=== PATIENT | female | born 1965 | race Caucasian/White ===

== ENCOUNTER 2018-01-28 09:33 | Emergency (ER) | payer MEDICAID ==
[~2018-01-28] VITALS: Ht 157.5 cm; Wt 66.7 kg
[2018-01-28 09:48] VITALS: Ht 157.5 cm; Wt 66.7 kg
[2018-01-28 10:44] LABS: BASOPHIL % 0.3 % (0-2); PLATELET COUNT 243 x10^3mcL (130-400); RED CELL DISTRIBUTION WIDTH 13.8 % (11.5-14.5)
[2018-01-28 10:52] LABS: CARBON DIOXIDE 25.7 mmol/L (21-32); CHLORIDE SERUM 109 mmol/L (98-107); CREATININE SERUM 0.9 mg/dL (0.6-1.0); GFR1 > 60 mL/min; GLUCOSE SERUM 92 mg/dL (74-106); POTASSIUM SERUM 3.6 mmol/L (3.5-5.1); SODIUM SERUM 147 mmol/L (136-145)
[2018-01-28 10:59] LABS: ALBUMIN 3.7 g/dL (3.4-5.0); ALKALINE PHOSPHATASE 103 U/L (46-116); ALT/SGPT 31 U/L (14-59); AST/SGOT 23 U/L (15-37); BILIRUBIN TOTAL 0.77 mg/dL (0.20-1.00); LIPASE 155 IU/L (73-393); TOTAL PROTEIN, SERUM 7.8 g/dL (6.4-8.2)
[2018-01-28 11:24] VITALS: BP 115/70
== END 2018-01-28 11:24 | disposition home or self-care (01) ==
LOC: ED 09:33
PROVIDERS: Emergency Medicine
DX: K80.70 Calculus of gallbladder and bile duct without cholecystitis without obstruction (principal)
CPT/HCPCS: J1885; J2405; J7030; Q0092

== ENCOUNTER 2018-10-06 15:33 | Inpatient (IN) | payer MEDICAID ==
[~2018-10-06] VITALS: Ht 162.6 cm; Wt 66.8 kg
[2018-10-06 15:37] VITALS: Ht 162.6 cm; Wt 66.8 kg
[2018-10-06 16:59] LABS: PLATELET COUNT 192 x10^3mcL (130-400); RED CELL DISTRIBUTION WIDTH 13.4 % (11.5-14.5)
[2018-10-06 17:03] LABS: CARBON DIOXIDE 22.3 mmol/L (21-32); CHLORIDE SERUM 98 mmol/L (98-107); GFR1 > 60 mL/min; GLUCOSE SERUM 138 mg/dL (74-106); POTASSIUM SERUM 3.1 mmol/L (3.5-5.1); SODIUM SERUM 134 mmol/L (136-145)
[2018-10-06 17:06] LABS: UA SPECIFIC GRAVITY 1.025 (1.005-1.035); microscopic required? YES; urine erythrocyte 3+ (NEGATIVE)
[2018-10-06 17:07] LABS: BASOPHIL % 0 % (0-2)
[2018-10-06 17:14] LABS: ALKALINE PHOSPHATASE 106 U/L (46-116); ALT/SGPT 72 U/L (14-59); AST/SGOT 31 U/L (15-37); BILIRUBIN TOTAL 0.5 mg/dL (0.20-1.00); TOTAL PROTEIN, SERUM 6.9 g/dL (6.4-8.2)
[2018-10-06 17:26] LABS: ALBUMIN 2.5 g/dL (3.4-5.0)
[2018-10-06 17:27] LABS: C REACTIVE PROTEIN 16.6 mg/dL (<=0.9)
[2018-10-06 17:37] LABS: CK-MB < 0.5 ng/mL (0-3.6); CREATINE KINASE 24 U/L (26-192)
[2018-10-06 17:40] LABS: FREE T4 1.15 ng/dL (0.76-1.46); T4(THYROXINE) 5.9 ug/dL (4.7-13.3)
[2018-10-06 17:43] LABS: T3 TOTAL 0.58 ng/mL
[2018-10-06 17:51] LABS: ERYTHROCYTE SED RATE 52 mm/hr (0-30)
[2018-10-06] MEDS ORDERED: LANSOPRAZOLE30 M2 PO (19:23)
[2018-10-06] MEDS ORDERED: ASPIR 8181 MG (19:23)
[2018-10-06 19:51] VITALS: BP 97/67
[2018-10-06 19:57] LABS: MAGNESIUM 1.7 mg/dL (1.8-2.4); PHOSPHOROUS 1.8 mg/dL (2.5-4.9)
[2018-10-07 04:37] VITALS: BP 90/51
[2018-10-07 06:47] LABS: MAGNESIUM 1.9 mg/dL (1.8-2.4); PHOSPHOROUS 1.7 mg/dL (2.5-4.9)
[2018-10-07 06:56] LABS: CALCIUM 7.9 mg/dL (8.5-10.1); CARBON DIOXIDE 21.1 mmol/L (21-32); CHLORIDE SERUM 108 mmol/L (98-107); CREATININE SERUM 0.7 mg/dL (0.6-1.0); GFR1 > 60 mL/min; GLUCOSE SERUM 97 mg/dL (74-106); POTASSIUM SERUM 4.9 mmol/L (3.5-5.1); SODIUM SERUM 138 mmol/L (136-145)
[2018-10-07 07:03] LABS: BASOPHIL % 0.1 % (0-2); PLATELET COUNT 141 x10^3mcL (130-400); RED CELL DISTRIBUTION WIDTH 13.8 % (11.5-14.5)
[2018-10-07 09:02] VITALS: BP 98/58
[2018-10-07 12:11] VITALS: BP 101/61
[2018-10-07 16:50] VITALS: BP 111/71
[2018-10-07 21:00] VITALS: BP 104/68
[2018-10-08 05:43] VITALS: BP 98/54
[2018-10-08 06:32] LABS: PLATELET COUNT 167 x10^3mcL (130-400); RED CELL DISTRIBUTION WIDTH 13.6 % (11.5-14.5)
[2018-10-08 06:59] LABS: CALCIUM 8.4 mg/dL (8.5-10.1); CARBON DIOXIDE 25.7 mmol/L (21-32); CHLORIDE SERUM 105 mmol/L (98-107); CREATININE SERUM 0.7 mg/dL (0.6-1.0); GFR1 > 60 mL/min; GLUCOSE SERUM 142 mg/dL (74-106); PHOSPHOROUS 3.2 mg/dL (2.5-4.9); POTASSIUM SERUM 3.5 mmol/L (3.5-5.1); SODIUM SERUM 140 mmol/L (136-145)
[2018-10-08 09:23] VITALS: BP 143/65
[2018-10-08 14:21] LABS: BAND NEUTROPHIL 3 % (0-10); BASOPHIL 0 % (0-2); MONOCYTE 2 % (0-7); SEGMENTED NEUTROPHILS 89 % (37-75); rbc morphology (normal/abnorm) NORMAL (NORMAL)
[2018-10-08 14:22] LABS: PLATELET MORPHOLOGY PLATELETS NORMAL
[2018-10-08 17:09] VITALS: BP 90/52
[2018-10-08 20:51] VITALS: BP 97/60
[2018-10-09 05:25] VITALS: BP 112/70
[2018-10-09 06:37] LABS: BASOPHIL % 0.1 % (0-2); PLATELET COUNT 187 x10^3mcL (130-400); RED CELL DISTRIBUTION WIDTH 14.1 % (11.5-14.5)
[2018-10-09 06:45] LABS: CALCIUM 8.1 mg/dL (8.5-10.1); CHLORIDE SERUM 107 mmol/L (98-107); CREATININE SERUM 0.8 mg/dL (0.6-1.0); GFR1 > 60 mL/min; GLUCOSE SERUM 94 mg/dL (74-106); POTASSIUM SERUM 3.3 mmol/L (3.5-5.1); SODIUM SERUM 142 mmol/L (136-145)
[2018-10-09 08:35] VITALS: BP 99/53
[2018-10-09 17:22] VITALS: BP 95/62
[2018-10-09 20:54] VITALS: BP 99/59
[2018-10-10 06:05] VITALS: BP 102/66
[2018-10-10 06:36] LABS: CALCIUM 8.3 mg/dL (8.5-10.1); CARBON DIOXIDE 25.6 mmol/L (21-32); CHLORIDE SERUM 106 mmol/L (98-107); CREATININE SERUM 0.7 mg/dL (0.6-1.0); GFR1 > 60 mL/min; GLUCOSE SERUM 98 mg/dL (74-106); POTASSIUM SERUM 3.9 mmol/L (3.5-5.1); SODIUM SERUM 142 mmol/L (136-145)
[2018-10-10 08:20] VITALS: BP 103/61
[2018-10-10 08:32] LABS: BASOPHIL % 0.1 % (0-2); PLATELET COUNT 214 x10^3mcL (130-400); RED CELL DISTRIBUTION WIDTH 14.5 % (11.5-14.5)
[2018-10-10] MEDS ORDERED: CLEOCIN HCL300 MG PO (11:21)
[2018-10-10] MEDS ORDERED: BD LACTINEX1.4 MG PO (11:24)
[2018-10-10 12:15] VITALS: BP 102/61
[2018-10-10 12:18] VITALS: BP 102/61
== END 2018-10-10 15:00 | disposition home or self-care (01) | DRG 720 ==
LOC: ED 15:33 → MU 18:52 → DU 18:52 → EDBEDREQSVC 18:58 → DU 19:50 → MU 10-07 15:52
PROVIDERS: Family Medicine; Specialist; ADMIT Internal Medicine
DX: A41.9 Sepsis, unspecified organism (principal); N17.0 Acute kidney failure with tubular necrosis; E43 Unspecified severe protein-calorie malnutrition; E87.1 Hypo-osmolality and hyponatremia; E83.42 Hypomagnesemia; E83.39 Other disorders of phosphorus metabolism; L03.116 Cellulitis of left lower limb; E87.6 Hypokalemia; K80.20 Calculus of gallbladder without cholecystitis without obstruction; K21.9 Gastro-esophageal reflux disease without esophagitis; R73.03 Prediabetes; R74.0 Nonspecific elevation of levels of transaminase and lactic acid dehydrogenase [LDH]; Z68.26 Body mass index [BMI] 26.0-26.9, adult; Z79.82 Long term (current) use of aspirin
CPT/HCPCS: 36600; 84439; C9113; J0696; J1030; J1644; J1720; J1885; J2405; J3010; J3370; J3490; J7030; J7050; Q0092; Q0163

== ENCOUNTER 2019-01-11 20:57 | Emergency (ER) | payer MEDICAID ==
[~2019-01-11] VITALS: Ht 152.4 cm; Wt 69.9 kg
[~2019-01-11 20:57] MED LIST: ASPIR 8181 MG; BD LACTINEX1.4 MG PO; CLEOCIN HCL300 MG PO; LANSOPRAZOLE30 M2 PO
[2019-01-11 21:22] VITALS: Ht 152.4 cm; Wt 69.9 kg
[2019-01-11 21:46] LABS: microscopic required? NO
[2019-01-11 21:56] LABS: urine erythrocyte NEGATIVE (NEGATIVE)
[2019-01-11 21:57] LABS: BASOPHIL % 0.6 % (0-2); PLATELET COUNT 241 x10^3mcL (130-400)
[2019-01-11 22:05] LABS: CALCIUM 9.4 mg/dL (8.5-10.1); CARBON DIOXIDE 27.5 mmol/L (21-32); CHLORIDE SERUM 106 mmol/L (98-107); CREATININE SERUM 0.9 mg/dL (0.6-1.0); GFR1 > 60 mL/min; GLUCOSE SERUM 95 mg/dL (74-106); POTASSIUM SERUM 3.9 mmol/L (3.5-5.1); SODIUM SERUM 143 mmol/L (136-145)
[2019-01-11 22:10] LABS: ALBUMIN 3.5 g/dL (3.4-5.0); ALKALINE PHOSPHATASE 106 U/L (46-116); ALT/SGPT 38 U/L (14-59); AST/SGOT 20 U/L (15-37); BILIRUBIN TOTAL 0.2 mg/dL (0.20-1.00); LIPASE 175 IU/L (73-393); TOTAL PROTEIN, SERUM 7.3 g/dL (6.4-8.2)
[2019-01-11 22:45] VITALS: BP 121/71
== END 2019-01-11 22:45 | disposition home or self-care (01) ==
LOC: ED 20:57
PROVIDERS: Emergency Medicine
DX: K80.20 Calculus of gallbladder without cholecystitis without obstruction (principal); Z98.890 Other specified postprocedural states
CPT/HCPCS: 36415; J1885; J2405; J7030

== ENCOUNTER 2019-06-05 13:08 | Emergency (ER) | payer MEDICAID ==
[~2019-06-05] VITALS: Ht 162.6 cm; Wt 73.5 kg
[2019-06-05 14:02] VITALS: Ht 162.6 cm; Wt 73.5 kg
[2019-06-05 16:26] LABS: BASOPHIL % 0.7 % (0-2); PLATELET COUNT 257 x10^3mcL (130-400); RED CELL DISTRIBUTION WIDTH 14.2 % (11.5-14.5)
[2019-06-05 16:29] LABS: UA SPECIFIC GRAVITY <=1.005 (1.005-1.035); microscopic required? YES; urine erythrocyte NEGATIVE (NEGATIVE)
[2019-06-05 16:34] LABS: CALCIUM 8.6 mg/dL (8.5-10.1); CARBON DIOXIDE 29.5 mmol/L (21-32); CHLORIDE SERUM 104 mmol/L (98-107); CREATININE SERUM 0.7 mg/dL (0.6-1.0); GFR1 > 60 mL/min; GLUCOSE SERUM 87 mg/dL (74-106); POTASSIUM SERUM 3.7 mmol/L (3.5-5.1); SODIUM SERUM 140 mmol/L (136-145)
[2019-06-05 16:39] LABS: ALBUMIN 3.2 g/dL (3.4-5.0); ALKALINE PHOSPHATASE 138 U/L (46-116); ALT/SGPT 50 U/L (14-59); AST/SGOT 20 U/L (15-37); BILIRUBIN TOTAL 0.31 mg/dL (0.20-1.00); TOTAL PROTEIN, SERUM 7.4 g/dL (6.4-8.2)
[2019-06-05 16:48] LABS: LIPASE 127 IU/L (73-393)
[2019-06-05 18:04] VITALS: BP 100/62
== END 2019-06-05 18:04 | disposition home or self-care (01) ==
LOC: ED 13:08
PROVIDERS: Emergency Medicine
DX: K80.20 Calculus of gallbladder without cholecystitis without obstruction (principal); Z98.890 Other specified postprocedural states
CPT/HCPCS: J1885; J2405